=== PATIENT | female | born 1975 | race Caucasian/White ===

== ENCOUNTER 2017-04-06 11:27 | Emergency (ER) | payer MEDICAID, MEDICARE ==
--- NOTE | 2017-04-06 12:33 | ERNOTE ---
ER Female HPI Date of Service: 04/06/17 Stated Complaint: CRAMPING/SPOTTING 9 WKS Presenting Symptoms: vaginal bleeding Time Seen by Provider: 04/06/17 12:21 Source: patient, RN notes reviewed Exam Limitations: no limitations Immunizations: IMMUNIZATION HX Immunizations Up to Date Yes Allergies/Adverse Reactions: Allergies latex Allergy (Intermediate, Verified 04/06/17 11:36) Hives neomycin [Neomycin] Allergy (Intermediate, Verified 04/06/17 11:36) adhesive tape Allergy (Intermediate, Uncoded 04/06/17 11:36) Home Medications: HOME MEDICATIONS Baclofen 20 mg PO TID PRN 01/03/14 [Last Taken Unknown] Clonazepam [Klonopin] 0.25 mg PO PRN 01/03/14 [Last Taken Unknown] HYDROcodone/ACETAMINOPHEN [Vicodin 5-325] 1 each PO QID PRN 01/03/14 [Last Taken Unknown] Ibuprofen [Motrin] 800 mg PO QID 01/03/14 [Last Taken Unknown] Rizatriptan Benzoate [Rizatriptan] 10 mg PO PRN 01/03/14 [Last Taken Unknown] - History of Present Illness Narrative: 41 year old female ambulatory to the ED for vaginal bleeding that she first noticed when she went to the bathroom earlier this morning. She reports that she is 9 weeks . She has not seen her OB yet. Her LMP was the first week of January. She is . She has had 3 episodes where she has seen blood on the toilet paper when she wiped. She also reports cramping in across her lower abdomen. She was last sexually active 2 days ago. Review of Systems - Review of Systems Constitutional: Absent: recent illness, fever, chills EYE: Present: no symptoms reported ENT: Present: no symptoms reported Respiratory: Absent: shortness of breath, cough Cardiology: Absent: chest pain, syncope Gastrointestinal/Abdominal: Present: nausea, vomiting, abdominal pain. Absent: diarrhea, constipation Genitourinary: Absent: frequency, dysuria Musculoskeletal: Absent: back pain, muscle pain Skin: Absent: rash, lesions Neurological: Absent: headache, dizziness/light-headedness Endocrine: Present: no symptoms reported Hematologic/Lymphatic: Absent: easy bruising, easy bleeding Psych: Present: no symptoms reported - Patient's Past Medical History Patient History - Medical: Anxiety, Depression, Migraines Patient History - Cardiac/Respiratory: No pertinent hx Patient History - Cancer: Breast, Chemotherapy history Patient History - Surgical Procedures: Cancer Surgery Patient History - Other: None LMP (Calendar): 01/29/17 - Social History Living Situations: home Abuse History: No History of abuse Psych History: Hx of Anxiety, Hx of Depression Smoking Status: Never smoker Have you smoked in the past 12 months: No Do you dip or chew tobacco: No Alcohol Use: none Drug Use: none - Immunizations Immunizations Up to Date: Yes Physical Exam - Physical Exam General Appearance: Present: wd/wn, alert, anxious Neck: Present: normal inspection, nontender, supple Respiratory: Present: no respiratory distress, normal breath sounds, no accessory muscle use, lungs clear Cardiovascular/Chest: Present: regular rate, rhythm, no murmur Gastrointestinal/Abdominal: Present: normal bowel sounds, nondistended, soft, tenderness - lower abdomen Back Exam: Present: normal inspection, no CVA tenderness Extremity Exam: Present: normal inspection, normal range of motion Neurological Exam: Present: alert, oriented, normal mood/affect, no motor/ sensory deficits Skin Exam: Present: normal color, warm/dry ED Progress - Results and Orders Patient's Lab Results:: I have reviewed the patient's lab results. - Vital Signs Patient's Vital Signs:: I have reviewed the patient's vital signs. Vital Signs: Vital Signs 04/06/17 11:35 Temperature 37.2 C Pulse Rate 72 Respiratory 16 Rate Blood Pressure 147/93 O2 Sat by Pulse 98 Oximetry - CT/Ultrasound CT/Ultrasound Narrative: Transabdominal first trimester OB ultrasound: Clinical gestational age: Uncertain, but assuming LMP of 01/29/2017, 9 weeks 4 days Estimated date delivery/confinement based on clinical gestational age: 211/05/2017, although again given uncertainty, this date may be unreliable Uterus: Anteverted. 9.9 cm longitudinal by 5.1 cm AP by 6.6 cm transverse. There is an anechoic structure within the uterus suggestive of a gestational sac with internal structures difficult to visualize due to transabdominal technique. Therefore transvaginal first trimester OB ultrasound images were obtained. Right ovary: Not visualized, probably obscured by overlying bowel gas. Left ovary: Not visualized, probably obscured by overlying bowel gas. Transvaginal first trimester OB ultrasound: Uterus cervix is closed. Uterus: 10.1 cm longitudinal by 4.9 cm AP by 6.9 cm transverse. Multiple nabothian cysts are noted within the uterine cervix. Gestational sac: 1 visualized within the fundus of the uterus, slightly right of midline, but surrounded by myometrium, measuring 22.7 mm x 13.7 mm x 25.2 mm, Mean Sac Diameter of 20.5 mm, corresponding to gestation age of 6 weeks 4 days. Yolk sac: Visualized. pole: Visualized. crown-rump length measurement of 10.6 mm, corresponding to gestation age of 7 weeks 1 days. Gestational age by ultrasound measurements: 7 weeks 1 days. Estimated date delivery/confinement based on ultrasound measurements: . Superior to the gestational sac there is a crescentic fluid measuring 1.6 cm in length by 0.6 cm in thickness, suggestive of a small subchorionic hemorrhage. M-mode imaging of the fetus demonstrates heart tones. heart rate of 141 bpm. Right ovary: 1.2 x 2.2 x 1.1 cm no dominant cystic or solid mass. Color flow seen. Left ovary: 1.4 x 2.4 x 1.5 cm no dominant cystic or solid mass. Color flow seen. No free fluid in the pelvis. IMPRESSION: 1. Single viable intrauterine visualized. Small subchorionic hemorrhage suggested. 2. Additional comments and measurements are as above. Electronically signed by Payam Majano M.D.. - Progress/Reassessment Chief Complaint: General Assessment Progress:: Improved Departure Clinical Impression: Subchorionic hemorrhage in first trimester - Departure Disposition: Home Follow Up Needed Condition: Stable Instructions: Subchorionic Hematoma, Vaginal Bleeding During , First Trimester, [id number] Additional Instructions: Return for heavy bleeding - saturating a pad per hour for 2 hours in a row or passing clots lemon sized or larger Nothing in the vagina until seen by your OB
[2017-04-06 12:34] LABS: Urine Bilirubin Negative (NEGATIVE); Urine Blood Negative /ul (NEGATIVE); Urine Ketone Negative (NEGATIVE); Urine Nitrite Negative (NEGATIVE); Urine Protein Negative (NEGATIVE); Urine Specific Gravity 1.015 SP.GR. (1.005-1.010); Urine Urobilinogen Normal (NORMAL)
--- OUTSIDE RECORDS SUMMARY | 2017-04-06 12:36 | XMS REPORT | Continuity of Care Document ---
:1975 Author Organization [facility] [employer] [place] [address] Care Team Providers Name Role Phone Yousuf Barahona Primary Care Provider [phone] Source Comments This disclosure is being made pursuant to the [employer] program and maynot contain all information available regarding this patient.[facility] Active Allergies and Adverse Reactions Allergen Noted Date Severity Reactions Comments Adhesive Tape 06/02/2014 Low Rash Latex 06/02/2014 Low Itching Neomycin 06/02/2014 Low Rash Current Medications Be aware that medications may not be up to date as of this document. Alwaysverify current medications with the patient. Prescription Sig. Disp. Refills Start Date End Date Status clonazePAM (KLONOPIN) 0.25 Take 0.25 mg by Active MG disintegrating tablet mouth daily as needed. ibuprofen (ADVIL,MOTRIN) Take 800 mg by Active 800 MG tablet mouth. 1 tab(s) By Mouth Every 6 Hours prn Multiple Vitamin (DAILY Take by mouth Active MULTIVITAMIN PO) daily. rizatriptan (MAXALT) 10 MG Take 10 mg by Active tablet mouth. 1 tablet(s) at onset of headache, may repeat every 2 hours until relief up to maximum 3 tablets in 24 hours Nxswcyp-Noqjgvdjj-Bgwcnef Take 1,000 mg by Active D (CALCIUM 500 PO) mouth daily. vitamin D, Take 2,000 Units Active cholecalciferol, 1000 by mouth daily. UNITS tablet traMADol (ULTRAM) 50 MG Take 1 tablet by 0 03/25/2015 Active tablet mouth every 6 (six) hours as needed. biotin ([facility] BIOTIN HIGH Take 2,000 mcg by Active POTENCY) 1000 MCG tablet mouth daily. orphenadrine (NORFLEX) 100 Take 100 mg by Active MG tablet mouth 2 (two) times daily. imipramine (TOFRANIL) 25 Take 25 mg by Active MG tablet mouth nightly. Active Problems Problem Noted Date Acquired absence of both breasts 08/25/2015 Personal history of breast cancer 08/25/2015 Overview: Left Rectal pain 05/04/2015 Ovarian mass 05/04/2015 Notalgia 05/04/2015 Osteopenia 10/27/2014 Musculoskeletal pain 10/27/2014 Stress 10/27/2014 Anxiety 10/27/2014 Neck pain 06/07/2014 Depression 06/07/2014 Migraine 06/07/2014 Tension headache 06/07/2014 Fatigue 06/04/2014 Surveillance of previously prescribed intrauterine contraceptive device 2013 Overview: Overview: MARY POLANCO MD Screening examination for sexually transmitted disease 01/29/2014 Overview: Overview: MARY POLANCO MD Premenopausal menorrhagia 01/06/2014 Overview: Overview: ARPAN BRADEN MD Lump or mass in breast 07/23/2013 Overview: Overview: SHAQUILLE KILPATRICK CNP Follow-up examination, following other surgery 03/27/2013 Overview: Overview: SHAQUILLE KILPATRICK CNP Aftercare following surgery of the nervous system 02/19/2013 Overview: Overview: PETER CHUNG MD Carpal tunnel syndrome 02/12/2013 Overview: Overview: PETER CHUNG MD Ganglion 09/11/2012 Overview: Overview: Left volar YOUSUF BLEVINS MD Pain in joint, forearm 09/11/2012 Overview: Overview: YOUSUF BLEVINS MD Pain in joint, multiple sites 07/04/2011 Overview: Overview: JD TAPIA MD Encounter for routine gynecological examination 01/10/2010 Overview: Overview: TAYLOR HENDERSON MD Abnormal weight gain 01/10/2010 Overview: Overview: TAYLOR HENDERSON MD Constipation 12/27/2009 Overview: Overview: ROSALIND BETHEA MD Esophageal reflux 12/27/2009 Overview: Overview: ROSALIND BETHEA MD Irritable colon 12/27/2009 Overview: Overview: ROSALIND EBTHEA MD Most Recent Encounters Date Type Specialty Providers Description 01/05/2017 Office Visit Oncology Arpan Braden MD Personal history of breast cancer (Primary Dx) Social History Tobacco Use Types Packs/Day Years Used Date Never Smoker Smokeless Tobacco: Never Used Alcohol Use Drinks/Week oz/Week Comments Yes 0.0 occasional Last Filed Vital Signs Vital Sign Reading Time Taken Blood Pressure 132/82 01/05/2017 3:15 PM CDT Pulse 92 01/05/2017 3:15 PM CDT Temperature 37.6 C (99.7 F) 01/05/2017 3:15 PM CDT Respiratory Rate 20 01/05/2017 3:15 PM CDT Height 1.549 m (5' 1") 09/20/2016 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 Weight 66.792 kg (147 lb 4 oz) 01/05/2017 3:15 PM CDT Body Mass Index 27.84 01/05/2017 3:15 PM CDT Oxygen Saturation 98% 01/05/2017 3:15 PM CDT Plan of Care Date Type Specialty Providers Description 01/02/2018 Appointment Oncology 01/02/2018 Appointment Oncology Arpan Braden MD [address] [place] [phone] (Fax) Health Maintenance Due Date Last Done Comments Lab-Lipids 1975 LAB-HgA1C 1980 Eye (Ophthalmology) Exam 1985 Foot Exam 1985 Lab-Urine Microalbumin 1985 Tetanus/Pertussis (1 - Tdap) 1994 Influenza Immunization (#1) 2016 Pap Smear 04/05/2018 04/05/2015 Colonoscopy 05/06/2025 05/06/2015, 05/06/2015, 10/01/2004 Results from Last 3 Months Comprehensive metabolic panel (01/05/2017 3:13 PM) Component Value Range Glucose 107(H)Comment: 60-100 mg/dL Fasting Plasma Glucose (FPG)<100 MG/DL Impaired Fasting Glucose (IFG) 100-125 MG/DL Provisional Diagnosis of Diabetes Mellitus > ch=507 MG/DL (Diagnosis Must Be Confirmed) BUN, Blood 11 7-19 mg/dL Creatinine 0.8 0.6-1.2 mg/dL Glomerular Filtration Rate 91 >90 mL/min/1.73mm2 Estimate Glomerlular Filtration Rate 106Comment:The estimated GFR >90 mL/min/1.73mm2 Estimate- has not been validated for women or patients with serious comorbid conditions, or with extremes of body size, muscle mass, or nutritional status. Calcium 9.7 8.4-10.2 mg/dL Sodium 139 136-145 mmol/L Potassium 3.7 3.5-4.6 mmol/L Chloride 106 99-111 mmol/L CO2 22.3 21.0-32.0 mmol/L Albumin 4.2 3.5-5.0 g/dL Total Protein 7.4 6.1-8.0 g/dL Bilirubin Total 0.7 0.2-1.2 mg/dL Alkaline Phosphatase 44 40-150 U/L AST 15 5-34 U/L ALT 22 0-55 u/L Narrative Testing performed at [facility], [address] [place] [address].Care Center Manager Broderick Roy MD CBC auto differential (01/05/2017 3:13 PM) Component Value Range WBC 8.5 3.1-11.0 x10^3/uL RBC 4.58 3.60-5.17 x10^6/uL Hemoglobin 14.3 11.1-15.3 g/dL Hematocrit 39.7 33.7-46.0 % MCV 86.7 81.0-98.0 fL MCH 31.2 27.2-33.3 pg MCHC 36.0(H) 31.7-35.6 g/dL RDW 11.8 10.8-14.6 % SD-RDW 36.5(L) 37.0-50.4 fL Platelets 301 147-370 x10^3/uL MPV 9.1 9.1-12.1 fL NE% 48.6 42.0-76.0 % %LYMPH 42.9 15.0-44.0 % %MONO 7.2 4.0-13.0 % % Eosinophils 0.6 0.0-6.0 % % Basophils 0.5 0.0-1.0 % Imm Gran Relative 0.2 0.0-1.0 % NE# 4.1 1.2-7.3 x10^3/uL Lymphs # 3.6(H) 0.6-3.5 x10^3/uL Hayes# 0.6 0.2-0.9 x10^3/uL Eosinophil # 0.1 0.0-0.4 x10^3/uL Baso# 0.0 0.0-0.1 x10^3/uL Imm Gran Absolute 0.02 0.00-0.10 x10^3/uL Specimen BLOOD Narrative Testing performed at [facility], [facility] and [facility] [id number].Care Center Manager Broderick Roy MD Insurance Payer Benefit Plan / Subscriber ID Type Phone Address Group MEDICARE MEDICARE A AND B [id number] [phone] [address] [place] [address] MEDICAID [place] [id number] Out of State [id number] [place] MED[place]ID [id number] [address] [place] [address]
[2017-04-06 12:41] LABS: Urine Appearance Clear; Urine Bacteria TRACE; Urine Color Yellow; Urine RBC None Seen /hpf (0-5); Urine WBC None Seen /hpf (0-5)
[2017-04-06 12:45] LABS: Hematocrit 40.7 % (37.0-47.0); Hemoglobin 14.3 gm/dL (12.5-16.0); Mean Cell Volume 87.5 fl (78-100); Mean Corpuscular Hemoglobin 30.8 pg (27-31); Mean Corpuscular Hgb Conc 35.1 g/dl (32-36); Mean Platelet Volume 9.1 fl (6.0-9.5); Neutrophil % 67.7 % (42-75.0); Platelet Count 284 K/mm3 (150-450); Red Blood Count 4.65 M/mm3 (4.2-5.4); Red Cell Distribution Width 11.7 % (11.5-14.0); White Blood Count 8.9 K/mm3 (4.0-10.5)
[2017-04-06 13:08] LABS: Albumin * 3.9 gm/dl (3.4-5.0); Anion Gap 14.2 mmol/L (6.8-13.8); BUN/Creatinine Ratio 11.5 (9.0-21.6); Bilirubin, Total 0.7 mg/dL (0.0-1.1); Ca. Corrected For Albumin 8.9 mg/dL (8.4-10.2); Calcium * 9.1 mg/dL (7.9-10.9); Carbon Dioxide 24.4 mmol/L (24-32.6); Potassium 3.6 mmol/L (3.4-4.6); Total Protein 7.4 gm/dL (6.2-8.2)
[2017-04-06 16:02] VITALS: BP 142/83
== END 2017-04-06 15:55 | disposition home or self-care (01) ==
LOC: ER 11:27
DX: O20.8 Other hemorrhage in early pregnancy (principal); Z3A.09 9 weeks gestation of pregnancy; Z33.1 Pregnant state, incidental; Z85.3 Personal history of malignant neoplasm of breast